=== PATIENT | female | born 1955 | race Caucasian/White ===

== ENCOUNTER 2018-12-28 23:43 | Emergency (ER) | payer OTHER ==
[~2018-12-28] VITALS: Ht 157.5 cm; Wt 74.8 kg
[2018-12-29 00:55] LABS: HEMATOCRIT 41 % (35-52); HEMOGLOBIN 13.4 G/DL (11.5-16.0); MEAN CORPUSCULAR HEMOGLOBIN 29 PG (25-34); WHITE BLOOD COUNT 16.5 10^3/uL (4.3-11.0)
[2018-12-29 00:56] LABS: BASOPHILS % (AUTO) 1 % (0-10); EOSINOPHILS % (AUTO) 2 % (0-10); LYMPHOCYTES % (AUTO) 16 % (12-44); MEAN CORPUSCULAR HGB CONC 33 G/DL (32-36); MEAN CORPUSCULAR VOLUME 87 FL (80-99); MEAN PLATELET VOLUME 9.8 FL (7.4-10.4); MONOCYTES % (AUTO) 5 % (0-12); PLATELET COUNT 299 10^3/uL (130-400); RED CELL DISTRIBUTION WIDTH 13.2 % (10.0-14.5)
[2018-12-29 00:57] LABS: BASOPHILS # (AUTO) 0.1 10^3/uL (0.0-0.1); EOSINOPHILS # (AUTO) 0.3 10^3/uL (0.0-0.3); LYMPHOCYTES # (AUTO) 2.6 X 10^3 (1.0-4.0); MONOCYTES # (AUTO) 0.8 X 10^3 (0.0-1.0); NEUTROPHILS # (AUTO) 12.4 X 10^3 (1.8-7.8); NEUTROPHILS % (AUTO) 76 % (42-75)
[2018-12-29 00:58] LABS: BAND NEUTROPHILS 16 %; NEUTROPHILS % (MANUAL) 62 %
[2018-12-29 00:59] LABS: ATYPICAL LYMPHOCYTES 1 %; EOSINOPHILS % (MANUAL) 2 %; LYMPHOCYTES % (MANUAL) 16 %; METAMYELOCYTES % 2 %; MONOCYTES % (MANUAL) 1 %; PLATELET ESTIMATE ADEQUATE
[2018-12-29 01:02] LABS: CARBON DIOXIDE 20 MMOL/L (21-32); CHLORIDE 103 MMOL/L (98-107); POTASSIUM 3.8 MMOL/L (3.6-5.0); SODIUM 143 MMOL/L (135-145)
[2018-12-29 01:03] LABS: ALANINE AMINOTRANSFERASE 23 U/L (0-55); ALBUMIN 3.9 GM/DL (3.2-4.5); ALKALINE PHOSPHATASE 66 U/L (40-136); BILIRUBIN,TOTAL 0.6 MG/DL (0.1-1.0); BUN/CREATININE RATIO 14; CALCIUM 8.6 MG/DL (8.5-10.1); CREATININE SERUM 0.93 MG/DL (0.60-1.30); GFR ESTIMATED > 60; GLUCOSE 110 MG/DL (70-105); MAGNESIUM 1.9 MG/DL (1.8-2.4); TOTAL PROTEIN 7.2 GM/DL (6.4-8.2)
--- NOTE | 2018-12-29 01:03 | ED Neurological Problem ---
General Chief Complaint: Altered Mental Status Stated Complaint: CONFUSION/VOMITTING Nursing Triage Note: Patient reports she went to bed at 2130 last night feeling normal except for some burning with urination. Patient reports hx of frequent UTIs. Family reports hearing a "thump" around 2200; states he found patient sitting on the couch around 2230, not acting normally, confused and disoriented with emesis in hair and on clothing. Daughter reports she called for EMS and helped patient to the bathroom to get cleaned up. Patient states she had been incontinent of bowel, possibly bladder, petechaie noted to face, eyes bloodshot. Bruising noted to left side of face, patient states left face is tender to touch, ice pack given to patient. Family states patient's glasses were found on the floor, broken. On arrival to ED, patient is alert and oriented x 4, reports a headache , states she does not remember getting up or falling. Nursing Sepsis Screen: No Definite Risk Source: patient, family, EMS, RN notes reviewed Exam Limitations: no limitations History of Present Illness Date Seen by Provider: December 28, 2018 Time Seen by Provider: 23:45 Initial Comments Patient presents via EMS c/ c/o left sided facial/head injury p/ apparently passing out. The patient reports going to bed around 09:30. A daughter and the patient's heard something around 22:00 that was c/w someone falling. found the patient sitting on the couch dazed, confused, and covered in vomitus @ 22:30. Obvious left facial and head trauma. Activated 911 @ that time. Upon arrival here, patient is A&O X 3. Has absolutely no recall of anything that transpired. Apparently incontinent of bowel and bladder. Denies any other injuries x/ for her head and face. Is on Plavix and a baby ASA daily p/ a ME and stent were placed in 2007. Timing/Duration: other (just [employer]) Severity: moderate Associated Symptoms: confusion (reportedly initially), loss of consciousness, nausea/vomiting Allergies and Home Medications Allergies Uncoded Allergies: IV CONTRAST DYE (Allergy, Unknown, 12/29/18) Patient Home Medication List Home Medication List Reviewed: No Review of Systems Review of Systems Constitutional: see HPI, other (left head & facial pain/bruising) Cardiovascular: see HPI, syncope (suspected) Gastrointestinal: see HPI, vomiting (x @ least one) : No Psychiatric/Neurological: See HPI, Headache All Other Systems Reviewed Negative Unless Noted: Yes (Negative excepted noted.) Past Zvirrjn-Ykleit-Rdyyys Hx Patient Social History Recent Foreign Travel: No Contact w/Someone Who Travel: No Recent Infectious Disease Expo: No Physical Exam Vital Signs Vital Signs - First Documented 12/28/18 23:45 Temp 98.2 Pulse 76 Resp 16 B/P (MAP) 130/66 (87) Pulse Ox 98 O2 Delivery Room Air Capillary Refill : Less Than 3 Seconds Height, Weight, BMI Height: 5'2.00" Weight: 165lbs. oz. 74.852141he; BMI Method:Stated General Appearance: WD/WN, mild distress HEENT: PERRL/EOMI, other (left facial/head tenderness, pain, bruising, and swelling) Neck: non-tender, supple Respiratory: lungs clear, no respiratory distress Cardiovascular: regular rate, rhythm Neurologic/Psychiatric: no motor/sensory deficits, alert, oriented x 3 Crainal Nerves: normal hearing, normal speech, PERRL Motor/Sensory: no motor deficit, no sensory deficit Skin: warm/dry Focused Exam Lactate Level 12/29/18 01:25: Lactic Acid Level Laboratory Tests Test 12/29/18 01:25 Progress/Results/Core Measures Results/Orders Lab Results Laboratory Tests Test 12/28/18 23:50 12/29/18 00:15 12/29/18 01:25 Range/Units White Blood Count 16.5 H 4.3-11.0 10^3/uL Red Blood Count 4.66 4.35-5.85 10^6/uL Hemoglobin 13.4 11.5-16.0 G/DL Hematocrit 41 35-52 % Mean Corpuscular Volume 87 80-99 FL Mean Corpuscular Hemoglobin 29 25-34 PG Mean Corpuscular Hemoglobin Concent 33 32-36 G/DL Red Cell Distribution Width 13.2 10.0-14.5 % Platelet Count 299 130-400 10^3/uL Mean Platelet Volume 9.8 7.4-10.4 FL Neutrophils (%) (Auto) 76 H 42-75 % Lymphocytes (%) (Auto) 16 12-44 % Monocytes (%) (Auto) 5 0-12 % Eosinophils (%) (Auto) 2 0-10 % Basophils (%) (Auto) 1 0-10 % Neutrophils # (Auto) 12.4 H 1.8-7.8 X 10^3 Lymphocytes # (Auto) 2.6 1.0-4.0 X 10^3 Monocytes # (Auto) 0.8 0.0-1.0 X 10^3 Eosinophils # (Auto) 0.3 0.0-0.3 10^3/uL Basophils # (Auto) 0.1 0.0-0.1 10^3/uL Neutrophils % (Manual) 62 % Lymphocytes % (Manual) 16 % Monocytes % (Manual) 1 % Eosinophils % (Manual) 2 % Metamyelocytes % 2 % Band Neutrophils 16 % Atypical Lymphocytes 1 % Platelet Estimate ADEQUATE Sodium Level 143 135-145 MMOL/L Potassium Level 3.8 3.6-5.0 MMOL/L Chloride Level 103 98-107 MMOL/L Carbon Dioxide Level 20 L 21-32 MMOL/L Anion Gap 20 H 5-14 MMOL/L Blood Urea Nitrogen 13 7-18 MG/DL Creatinine 0.93 0.60-1.30 MG/DL Estimat Glomerular Filtration Rate > 60 BUN/Creatinine Ratio 14 Glucose Level 110 H 70-105 MG/DL Calcium Level 8.6 8.5-10.1 MG/DL Corrected Calcium 8.7 8.5-10.1 MG/DL Magnesium Level 1.9 1.8-2.4 MG/DL Total Bilirubin 0.6 0.1-1.0 MG/DL Aspartate Amino Transf (AST/SGOT) 24 5-34 U/L Alanine Aminotransferase (ALT/SGPT) 23 0-55 U/L Alkaline Phosphatase 66 40-136 U/L Troponin T 14 H <=10 NG/L Total Protein 7.2 6.4-8.2 GM/DL Albumin 3.9 3.2-4.5 GM/DL Serum Alcohol < 10 <10 MG/DL Urine Color YELLOW Urine Clarity CLOUDY Urine pH 6.0 5-9 Urine Specific Conception 1.025 H 1.016-1.022 Urine Protein NEGATIVE NEGATIVE Urine Glucose (UA) NEGATIVE NEGATIVE Urine Ketones NEGATIVE NEGATIVE Urine Nitrite NEGATIVE NEGATIVE Urine Bilirubin NEGATIVE NEGATIVE Urine Urobilinogen 0.2 NORMAL MG/DL Urine Leukocyte Esterase 2+ H NEGATIVE Urine RBC (Auto) TRACE H NEGATIVE Urine RBC NONE /HPF Urine WBC 2-5 /HPF Urine Squamous Epithelial Cells 5-10 /HPF Urine Renal Epithelial Cells RARE /HPF Urine Crystals NONE /LPF Urine Bacteria MODERATE H /HPF Urine Casts PRESENT /LPF Urine Hyaline Casts 2-5 H /LPF Urine Mucus MODERATE H /LPF Urine Culture Indicated YES Urine Opiates Screen NEGATIVE NEGATIVE Urine Oxycodone Screen NEGATIVE NEGATIVE Urine Methadone Screen NEGATIVE NEGATIVE Urine Propoxyphene Screen NEGATIVE NEGATIVE Urine Barbiturates Screen NEGATIVE NEGATIVE Ur Tricyclic Antidepressants Screen NEGATIVE NEGATIVE Urine Phencyclidine Screen NEGATIVE NEGATIVE Urine Amphetamines Screen NEGATIVE NEGATIVE Urine Methamphetamines Screen NEGATIVE NEGATIVE Urine Benzodiazepines Screen NEGATIVE NEGATIVE Urine Cocaine Screen NEGATIVE NEGATIVE Urine Cannabinoids Screen NEGATIVE NEGATIVE My Orders Orders - TERESE FUNES DO Alcohol (12/29/18 00:09) Cbc With Automated Diff (12/29/18 00:09) Comprehensive Metabolic Panel (12/29/18 00:09) Drug Screen Stat (Urine) (12/29/18 00:09) Magnesium (12/29/18 00:09) Ua Culture If Indicated (12/29/18 00:09) Troponin T (12/29/18 00:09) Ekg Tracing (12/29/18 00:09) Orthostatic Vital Signs (Adult (12/29/18 00:09) Ct Head/Face/Cervical Wo (12/29/18 00:09) Chest 1 View Ap/Pa Only (12/29/18 00:09) Manual Differential (12/28/18 23:50) Urine Culture (12/29/18 00:15) Lactic Acid Analyzer (12/29/18 01:11) Blood Culture (12/29/18 01:11) Lactated Ringers (Lr 1000 Ml Iv Solution (12/29/18 01:15) Ceftriaxone For Iv Use (Rocephin For I (12/29/18 01:45) Protime With Inr (12/29/18 01:32) Partial Thromboplastin Time (12/29/18 01:32) Vital Signs/I&O 12/28/18 12/29/18 23:45 01:14 Temp 98.2 Pulse 76 Resp 16 B/P (MAP) 130/66 (87) 127/56 (79) 141/70 (93) 128/73 (91) Pulse Ox 98 O2 Delivery Room Air Blood Pressure Mean: 87 Initial ECG Impression Date: December 29, 2018 Initial ECG Impression Time: 01:00 Initial ECG Rate: 74 Initial ECG Rhythm: Normal Sinus Initial ECG Intervals: Normal Initial ECG Impression: Normal Initial ECG Comparisson: No Previous ECG Available Diagnostic Imaging Diagonstic Imaging: Xray, CT Plain Films/CT/US/NM/MRI: facial bones, chest, c-spine, head (see report) Reviewed: Reviewed by Me (BECKY) Departure Impression Primary Impression: Syncope and collapse Additional Impressions: Head/facial contusion Subarachnoid hemorrhage following injury Traumatic intraparenchymal hemorrhage UTI (urinary tract infection) Neutrophilic leukocytosis Platelet inhibition due to Plavix Disposition: 02 XFER SHT-TRM HOSP Condition: Stable Transfer Time Spoke to Accepting Phy: 01:43 Transfer Progress Notes Discussed the patient c/ Dr. Coleman (Hospitalist) and he has accepted the patient for transfer. Going to attempt to transfer by air. Transfer [facility] Method of Transfer: Air Departure-Patient Inst. Referrals: NO,LOCAL PHYSICIAN (PCP/Family) Primary Care Physician TERESE FUNES DO December 29, 2018 01:03
[2018-12-29 01:05] LABS: CLARITY,URINE CLOUDY; COLOR,URINE YELLOW
[2018-12-29 01:06] LABS: BACTERIA,URINE MODERATE /HPF; BILIRUBIN,URINE NEGATIVE (NEGATIVE); GLUCOSE, URINE (UA) NEGATIVE (NEGATIVE); KETONES,URINE NEGATIVE (NEGATIVE); LEUKOCYTE ESTERASE ,URINE 2+ (NEGATIVE); NITRITE,URINE NEGATIVE (NEGATIVE); PROTEIN,URINE NEGATIVE (NEGATIVE); UROBILINOGEN,URINE 0.2 MG/DL (NORMAL)
[2018-12-29 01:07] LABS: RENAL EPITHELIAL CELLS,URINE RARE /HPF
[2018-12-29 01:09] LABS: AMPHETAMINE SCREEN, URINE NEGATIVE (NEGATIVE); BARBITURATE SCREEN URINE NEGATIVE (NEGATIVE); BENZODIAZEPINES SCREEN URINE NEGATIVE (NEGATIVE); CANNABINOID SCREEN, URINE NEGATIVE (NEGATIVE); COCAINE SCREEN URINE NEGATIVE (NEGATIVE); METHADONE STAT NEGATIVE (NEGATIVE); METHAMPHETAMINE SCREEN URINE S NEGATIVE (NEGATIVE); OPIATE SCREEN URINE NEGATIVE (NEGATIVE); OXYCODONE STAT NEGATIVE (NEGATIVE); PROPOXYPHENE STAT NEGATIVE (NEGATIVE); TRICYCLIC ANTIDEPRESSANTS SCRE NEGATIVE (NEGATIVE)
[2018-12-29 01:14] VITALS: BP_SYST 127; BP_SYST 128; BP_SYST 141; BP_DIAS 56; BP_DIAS 70; BP_DIAS 73
[2018-12-29] MEDS ORDERED: LACTATED RINGERS 1,000 ML IV SCH (01:15)
[2018-12-29] MEDS ORDERED: cefTRIAXone FOR IV USE 1,000 MG in WATER (STERILE) FOR INJECTION 10 ML IV ONE (01:45)
[2018-12-29 01:57] LABS: PROTHROMBIN TIME PATIENT 13.3 SEC (12.2-14.7)
[2018-12-29 03:33] VITALS: BP 124/54
--- NOTE | 2018-12-29 04:01 | NUR ---
[facility]. [facility] dispatch states they can lift now, but a fog window is present. 0140- Dr. Coleman at [facility] [place] has accepted patient. Called [facility] transfer team to check on room number so aircraft can lift; per [facility] transfer team, room number will be assigned shortly, advised not to lift aircraft until room number is given. 0201: Report given to QUINCY Sandoval at [facility]. Patient to be routed through [facility] ED for trauma. [facility] called, they have accepted transfer and will lift shortly. Patient and family at bedside updated. 0218: Call received from [facility], they have declined transfer d/t fog. [facility] d[facility]t [facility]. 0235: [facility] called, they will check weather and call back. [facility] will call back when aircraft has lifted and ETA is known. Patient and family at bedside notified. 0258: [facility] aircraft has lifted, ETA 0318. 0317[facility] 0[facility]: Report given to flight crew, patient left facility at this time with flight crew.
--- NOTE | 2018-12-29 06:34 | Diagnostic Imaging Report ---
PROCEDURE: CT head, face, and cervical spine without contrast. TECHNIQUE: Multiple contiguous axial images were obtained through the head, neck, and facial bones without the use of intravenous contrast. Sagittal and coronal reformations through the cervical spine and facial bones were also performed. Auto Exposure Controls were utilized during the CT exam to meet ALARA standards for radiation dose reduction. INDICATION: Nausea, vomiting, fall COMPARISON: None available FINDINGS: An 8mm hyperdense focus is identified within the left frontal lobe, series 2, image 20. Additional hyperdensity is seen within the sulci overlying the right temporal lobe. No midline shift, herniation, obstructive hydrocephalus, or additional extra-axial fluid collection. No CT evidence of an acute ischemic infarction. Left temporoparietal scalp swelling. The calvarium appears intact. The paranasal sinuses demonstrate minimal fluid within the bilateral maxillary sinuses but are otherwise clear. Minimal mucosal thickening and fluid within the bilateral maxillary sinuses. Otherwise, the paranasal sinuses appear clear. Zygomatic arches are intact. No temporomandibular joint dislocation. Orbital rims are intact. Mild rightward deviation of the nasal septum. No suspicious radiopaque foreign body. Straightening of the normal cervical lordosis without significant anterolisthesis or retrolisthesis. Alignment of the atlantooccipital joint is well maintained. Besides endplate degenerative changes, vertebral body heights are well-maintained. Moderate disc space height loss at C5/C6 and C6/C7. No acute fracture or dislocation. No destructive osseous process. Scattered facet joint degenerative changes and uncovertebral joint hypertrophy. IMPRESSION: Small acute intraparenchymal left frontal lobe hemorrhage and contusion. Small amount of subarachnoid hemorrhage overlying the right temporal lobe. No acute facial fracture. No acute osseous abnormality within the cervical spine with scattered degenerative changes. Small amount of layering fluid within the bilateral maxillary sinuses. Additional findings as described above. Agree with preliminary interpretation. Dictated by: Dictated on workstation # [id number]
--- NOTE | 2018-12-29 06:49 | Diagnostic Imaging Report ---
INDICATION: Nausea, vomiting, fall. COMPARISON: None available. TECHNIQUE: Single radiograph of chest dated 12/29/2018. FINDINGS: The cardiac silhouette is within normal limits in size. Mild pulmonary vascular congestion. The lungs are clear of focal pulmonary opacity. No pleural effusion. No pneumothorax. No acute osseous abnormality. IMPRESSION: Mild central pulmonary vascular congestion without overt congestive heart failure or additional superimposed acute cardiopulmonary abnormality. Dictated by: Dictated on workstation # [id number]
== END 2018-12-29 03:33 | disposition short-term general hospital (02) ==
LOC: ER FS 23:43
DX: S06.6X9A Traumatic subarachnoid hemorrhage with loss of consciousness of unspecified duration, initial encounter (principal); N39.0 Urinary tract infection, site not specified; D72.829 Elevated white blood cell count, unspecified; D69.1 Qualitative platelet defects; I25.2 Old myocardial infarction; Z95.5 Presence of coronary angioplasty implant and graft; Z91.041 Radiographic dye allergy status; Z79.82 Long term (current) use of aspirin; Z79.02 Long term (current) use of antithrombotics/antiplatelets; W18.30XA Fall on same level, unspecified, initial encounter
CPT/HCPCS: 36415; 70450; 70486; 71045; 72125; 80053; 80306; 80320; 81000; 83605; 83735; 84484; 85007; 85027; 85610; 85730; 87040; 87088; 93005

== ENCOUNTER → 2022-11-23 | Outpatient (CLI) | payer MEDICARE, OTHER ==
[2022-11-23 11:14] LABS: BASOPHILS # (AUTO) 0.1 10^3/uL (0.0-0.1); BASOPHILS % (AUTO) 1 % (0-10); EOSINOPHILS # (AUTO) 0.2 10^3/uL (0.0-0.3); EOSINOPHILS % (AUTO) 1 % (0-10); HEMATOCRIT 27 % (35-52); HEMOGLOBIN 8.9 g/dL (11.5-16.0); LYMPHOCYTES # (AUTO) 2.2 10^3/uL (1.0-4.0); LYMPHOCYTES % (AUTO) 20 % (12-44); MEAN CORPUSCULAR HEMOGLOBIN 29 pg (25-34); MEAN CORPUSCULAR HGB CONC 34 g/dL (32-36); MEAN CORPUSCULAR VOLUME 87 fL (80-99); MEAN PLATELET VOLUME 9.8 fL (9.0-12.2); MONOCYTES # (AUTO) 0.7 10^3/uL (0.0-1.0); MONOCYTES % (AUTO) 6 % (0-12); NEUTROPHILS # (AUTO) 8.2 10^3/uL (1.8-7.8); NEUTROPHILS % (AUTO) 72 % (42-75); PLATELET COUNT 231 10^3/uL (130-400); WHITE BLOOD COUNT 11.4 10^3/uL (4.3-11.0)
== END ==
LOC: LAB FS 10:51
DX: D64.9 Anemia, unspecified (principal)
CPT/HCPCS: 36415; 85025